=== PATIENT | male | born 1990 | race Two or more races ===

== ENCOUNTER 2017-11-04 16:11 | Emergency (ER) | payer OTHER ==
[2017-11-04] MEDS ORDERED: MORPHINE SULFATE 10 MG/ML INJ IV ONE (16:36)
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
[2017-11-04 18:44] VITALS: BP 121/79
== END 2017-11-04 19:06 | disposition home or self-care (01) ==
LOC: ER 16:11
DX: S13.9XXA Sprain of joints and ligaments of unspecified parts of neck, initial encounter (principal); S33.5XXA Sprain of ligaments of lumbar spine, initial encounter; S83.501A Sprain of unspecified cruciate ligament of right knee, initial encounter; V13.4XXA Pedal cycle driver injured in collision with car, pick-up truck or van in traffic accident, initial encounter
CPT/HCPCS: 99284; 96374; 73080; 73562; 70450; 72125; 72128; 72131; L1830; J2270